=== PATIENT | female | born 1995 | race Caucasian/White ===

== ENCOUNTER 2016-06-19 22:45 | Emergency (ER) | payer OTHER ==
[2016-06-19] MEDS ORDERED: Ibuprofen TAB* 600 MG PO ONE (23:30)
[2016-06-19] MEDS ORDERED: oxyCODONE/Acetamin 5/325 MG* TAB PO ONE (23:30)
--- NOTE | 2016-06-19 23:35 | ED ---
Upper Extremity Pain - HPI Summary HPI Summary: Patient presents with left wrist pain that developed after she fell while ice skating. She tried to catch herself and developed immediate pain. She denies previous injury to this wrist and is right handed. She has not taken any medication for pain. - History of Current Complaint Chief Complaint: EDExtremityUpper Stated Complaint: FALL/LEFT WRIST PAIN Time Seen by Provider: 06/19/16 22:56 Hx Obtained From: Patient Mechanism Of Injury: Fall From A Standing Position Onset/Duration: Started Minutes Ago - 90, Traumatic, Still Present Timing: Constant Severity Initially: Severe Severity Currently: Severe Pain Location: Wrist - left Character: Sharp, Aching Aggravating Factor(s): Movement Alleviating Factor(s): Nothing Associated Signs & Symptoms: Positive: Swelling Related History: Dominant Hand Right - Allergies/Home Medications Allergies/Adverse Reactions: Allergies Allergy/AdvReac Type Severity Reaction Status Date / Time No Known Allergies Allergy Verified 06/19/16 23:38 PMH/Surg Hx/FS Hx/Imm Hx Previously Healthy: Yes Infectious Disease History: No Infectious Disease History: Denies: Traveled Outside the [place] in Last 30 Days - Family History Known Family History: Positive: None - Social History Occupation: Student Lives: Alone Alcohol Use: Rare Substance Use Type: Reports: None Smoking Status (MU): Never Smoked Tobacco Review of Systems Positive: Arthralgia - left wrist, Myalgia, Decreased ROM, Edema All Other Systems Reviewed And Are Negative: Yes Physical Exam Triage Information Reviewed: Yes Vital Signs On Initial Exam: Initial Vitals Temp Pulse Resp BP Pulse Ox 98.7 F 71 16 136/69 98 06/19/16 22:47 06/19/16 22:47 06/19/16 22:47 06/19/16 22:47 06/19/16 22:47 Vital Signs Reviewed: Yes Appearance: Positive: Well-Appearing, Well-Nourished, Pain Distress Skin: Positive: Warm, Skin Color Reflects Adequate Perfusion, Dry, Soft Head/Face: Positive: Normal Head/Face Inspection Eyes: Positive: EOMI, JAYRO, Conjunctiva Clear Respiratory/Lung Sounds: Positive: Breath Sounds Present Cardiovascular: Positive: RRR Musculoskeletal: Positive: Limited @ - left wrist flexion, extension, radial and ulnar deviation are painful, Pain @ - TTP radial aspect of the DRUJ; non- tender over the snuff box, carpals or metacarpals, Edema Left - left radial aspect of the DRUJ Neurological: Positive: Sensory/Motor Intact, Alert, Oriented to Person Place, Time, NV Bundle Intact Distally Psychiatric: Positive: Affect/Mood Appropriate AVPU Assessment: Alert - [place] Coma Scale Coma Scale Total: 15 Procedures - Splinting Location: left distal radius Hand-Made Type: plaster Splint: sugar-tong - with posterior mold Pre-Proc Neuro Vasc Exam: normal Post-Proc Neuro Vasc Exam: normal Diagnostics - Vital Signs Vital Signs Temp Pulse Resp BP Pulse Ox 06/19/16 22:47 98.7 F 71 16 136/69 98 - Laboratory Lab Statement: Any lab studies that have been ordered have been reviewed, and results considered in the medical decision making process. - Radiology No standard instances Xray Interpretation: Positive (See Comments) Radiology Interpretation Completed By: ED Physician - Nondisplaced left distal radius fracture Course/Dx - Diagnoses Differential Diagnosis/HQI/PQRI: Positive: Arthritis, Bursitis, Contusion, Fracture (Closed), Hematoma, Strain, Sprain Provider Diagnoses: Fracture of left distal radius Discharge - Discharge Plan Condition: Stable Disposition: HOME Prescriptions: Ondansetron [Zofran Odt] 4 mg PO QID PRN #12 tab PRN Reason: Nausea oxyCODONE/Acetamin 5/325 MG* [Percocet 5/325 TAB*] 1 tab PO Q4H PRN #24 tab MDD 6 PRN Reason: Pain Patient Education Materials: Arm Fracture in Adults (ED) Referrals: Daniel Barbour MD [Medical Doctor] - Additional Instructions: Keep your splint clean, dry and intact at all times. Elevate your hand above your heart to decrease swelling and pain. Use ibuprofen 600mg three times daily with meals for the next 5-7 days to decrease swelling and pain as well. Use Percocet for uncontrolled pain, as well as Zofran for nausea. You can wear the sling for comfort as needed. Please call Dr. Barbour's office tomorrow for an appointment for orthopedic evaluation. Return to the emergency department if your symptoms worsen.
[2016-06-20] MEDS ORDERED: Ondansetron ODT TAB* 4 MG ONE (00:05)
[2016-06-20] MEDS ORDERED: Ondansetron ODT TAB* 4 MG PO ONE ×2 (00:06→00:22)
[2016-06-20] MEDS ORDERED: oxyCODONE/Acetamin 5/325 MG* TAB PO ONE (00:22)
[2016-06-20 00:42] VITALS: BP 120/65
--- NOTE | 2016-06-20 07:42 | RAD ---
HISTORY: Fall, swelling at left scaphoid, left wrist pain COMPARISONS: None VIEWS: 4, Frontal, lateral, oblique, and scaphoid deviation views of the left wrist FINDINGS: BONE DENSITY: Normal. BONES: There is no displaced fracture. JOINTS: There is no arthropathy. ALIGNMENT: There is no dislocation. SOFT TISSUES: Unremarkable. OTHER FINDINGS: None. IMPRESSION: NO ACUTE OSSEOUS INJURY. IF SYMPTOMS PERSIST, RECOMMEND REPEAT IMAGING.
== END 2016-06-20 00:41 | disposition home or self-care (01) ==
LOC: ED 22:45
DX: M25.532 Pain in left wrist (principal); S52.502A Unspecified fracture of the lower end of left radius, initial encounter for closed fracture; W19.XXXA Unspecified fall, initial encounter; Y93.21 Activity, ice skating; Y92.9 Unspecified place or not applicable
CPT/HCPCS: 99283; A9270-GY